=== PATIENT | male | born 1980 | race Caucasian/White ===

== ENCOUNTER → 2022-04-22 | Outpatient (CLI) | payer OTHER | LOC: MHCPAIN 12:28 | DX: M25.551 Pain in right hip (principal); M25.852 Other specified joint disorders, left hip; G89.29 Other chronic pain | CPT/HCPCS: G0463 ==

== ENCOUNTER → 2022-05-15 | Outpatient (CLI) | payer OTHER | LOC: MHCPAIN 10:27 | DX: M25.551 Pain in right hip (principal); M24.851 Other specific joint derangements of right hip, not elsewhere classified | CPT/HCPCS: J1040; Q9967 ==

== ENCOUNTER → 2022-05-28 | Outpatient (CLI) | payer OTHER | LOC: MHCPAIN 11:01 | DX: M25.551 Pain in right hip (principal); M53.3 Sacrococcygeal disorders, not elsewhere classified | CPT/HCPCS: G0463 ==

== ENCOUNTER → 2022-12-24 | Outpatient (CLI) | payer OTHER | LOC: MHCPAIN 13:35 | DX: M25.551 Pain in right hip (principal); G89.29 Other chronic pain | CPT/HCPCS: G0463 ==

== ENCOUNTER → 2023-01-22 | Outpatient (CLI) | payer OTHER | LOC: MHCPAIN 14:16 | DX: M25.551 Pain in right hip (principal); M24.851 Other specific joint derangements of right hip, not elsewhere classified | CPT/HCPCS: J1040; Q9967 ==